=== PATIENT | male | born 1985 | race Caucasian/White ===

== ENCOUNTER 2017-07-23 16:51 | Emergency (ER) | payer MEDICAID ==
[2017-07-23 17:07] VITALS: BP 113/84
--- NOTE | 2017-07-23 18:21 | UC ---
Respiratory Complaint HPI - HPI Summary HPI Summary: Pt c/o cough, X 5 weeks. Pt c/o URI that began 5 weeks ago. Pt has been taking OTC cold, cough and allergy medicine - History of Current Complaint Chief Complaint: UCRespiratory Stated Complaint: CONGESTION,COUGH Time Seen by Provider: 07/23/17 18:14 Hx Obtained From: Patient Timing: Constant Severity Initially: Mild Severity Currently: Mild Character: Cough: Nonproductive Aggravating Factors: Exertion, Deep Breaths, Recumbent Position Alleviating Factors: Nothing Associated Signs And Symptoms: Positive: URI, Nasal Congestion, Hoarseness Related History: Seasonal Allergies - Risk Factors Pulmonary Embolism Risk Factors: Negative Cardiac Risk Factors: Negative Pseudomonas Risk Factors: Negative Tuberculosis Risk Factors: Negative - Allergies/Home Medications Allergies/Adverse Reactions: Allergies Allergy/AdvReac Type Severity Reaction Status Date / Time Dextromethorphan Allergy Intermediate Hives Verified 07/23/17 17:03 Penicillins Allergy Anaphylatic Verified 07/23/17 17:03 Shock PMH/Surg Hx/FS Hx/Imm Hx Previously Healthy: Yes - Surgical History Surgical History: None - Family History Known Family History: Positive: Cardiac Disease - Social History Occupation: Employed Full-time Lives: With Family Alcohol Use: Rare Substance Use Type: None Smoking Status (MU): Heavy Every Day Tobacco Smoker Type: Smokeless Tobacco Amount Used/How Often: 2 cans and 1 puch/week Have You Smoked in the Last Year: No - Immunization History Most Recent Influenza Vaccination: Not the Season Review of Systems Constitutional: Negative Skin: Negative Eyes: Negative ENT: Other - nasal congestion Respiratory: Cough Cardiovascular: Negative Gastrointestinal: Negative Genitourinary: Negative Motor: Negative Neurovascular: Negative Musculoskeletal: Negative Neurological: Negative Psychological: Negative Is Patient Immunocompromised?: No All Other Systems Reviewed And Are Negative: Yes Physical Exam Triage Information Reviewed: Yes Appearance: Well-Appearing Vital Signs: Initial Vital Signs Temp 99.2 F 07/23/17 17:00 Pulse 82 07/23/17 17:00 Resp 16 07/23/17 17:00 BP 113/84 07/23/17 17:00 Pulse Ox 100 07/23/17 17:00 Vital Signs Reviewed: Yes Eye Exam: Normal ENT Exam: Other ENT: Positive: Nasal congestion Dental Exam: Normal Neck exam: Normal Respiratory Exam: Normal Cardiovascular Exam: Normal Musculoskeletal Exam: Normal Neurological Exam: Normal Psychological Exam: Normal Skin Exam: Normal UC Diagnostic Evaluation - Laboratory O2 Sat by Pulse Oximetry: 100 Respiratory Course/Dx - Differential Dx/Diagnosis Differential Diagnosis/HQI/PQRI: Bronchitis Provider Diagnoses: Bronchitis Discharge - Discharge Plan Condition: Stable Disposition: HOME Prescriptions: Azithromycin TAB* [Zithromax TAB (Z-BETY) 250 mg #6 tabs] 2 tab PO .TODAY, THEN 1 DAILY #1 bety Patient Education Materials: Acute Bronchitis (ED) Referrals: [facility] [Outside] - If Needed No Primary Care Phys,NOPCP [Primary Care Provider] -
== END 2017-07-23 18:34 | disposition home or self-care (01) ==
LOC: UCCORT 16:51
DX: J40 Bronchitis, not specified as acute or chronic (principal); F17.210 Nicotine dependence, cigarettes, uncomplicated; Z88.0 Allergy status to penicillin; Z88.8 Allergy status to other drugs, medicaments and biological substances
CPT/HCPCS: 99212; G0463

== ENCOUNTER 2017-11-07 18:14 | Emergency (ER) | payer SELFPAY ==
[2017-11-07 19:41] VITALS: BP 115/77
--- NOTE | 2017-11-07 20:43 | RAD ---
Indication: Direct trauma to the RIGHT forefoot. Pain and bruising at the distal metatarsals and toes. Comparison: No relevant prior exams available on the [facility] for comparison. Technique: AP, lateral, and oblique views of the RIGHT foot. REPORT AND IMPRESSION: Soft tissue swelling over the dorsum of the forefoot. Negative for fracture or malalignment. 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
--- NOTE | 2017-11-07 20:48 | UC ---
Lower Extremity/Ankle HPI - HPI Summary HPI Summary: 32 yo male had a 50 lbs steel plate fell on his right foot occurred at work - History of Current Complaint Chief Complaint: UCLowerExtremity Stated Complaint: RIGHT FOOT PAIN Time Seen by Provider: 11/07/17 20:08 Hx Obtained From: Patient Onset/Duration: Sudden Onset Severity Initially: Moderate Severity Currently: Moderate Pain Intensity: 6 Pain Scale Used: 0-10 Numeric Aggravating Factor(s): Standing, Ambulation Alleviating Factor(s): Rest, Elevation Able to Bear Weight: Yes Related History: Occupational Injury - Allergies/Home Medications Allergies/Adverse Reactions: Allergies Allergy/AdvReac Type Severity Reaction Status Date / Time MS Dextromethorphan Allergy Intermediate Hives Verified 11/07/17 19:41 [Dextromethorphan] MS Penicillins [Penicillins] Allergy Anaphylatic Verified 11/07/17 19:41 Shock Home Medications: Home Medications Ibuprofen TAB* [Motrin TAB* 800 MG] 1,000 mg PO ONCE 11/07/17 [History Confirmed 11/07/17] PMH/Surg Hx/FS Hx/Imm Hx Previously Healthy: Yes - Surgical History Surgical History: None - Family History Known Family History: Positive: Cardiac Disease - Social History Alcohol Use: Rare Substance Use Type: None Smoking Status (MU): Heavy Every Day Tobacco Smoker Type: Smokeless Tobacco Amount Used/How Often: 2 cans and 1 puch/week Have You Smoked in the Last Year: No - Immunization History Most Recent Influenza Vaccination: Not the 2016/2017 Season Review of Systems Constitutional: Negative Skin: Bruising Eyes: Negative ENT: Negative Respiratory: Negative Cardiovascular: Negative Gastrointestinal: Negative Genitourinary: Negative Motor: Negative Neurovascular: Negative Musculoskeletal: Arthralgia, Myalgia Neurological: Negative Psychological: Negative Is Patient Immunocompromised?: No All Other Systems Reviewed And Are Negative: Yes Physical Exam Triage Information Reviewed: Yes Appearance: Well-Appearing, No Pain Distress, Well-Nourished Vital Signs: Initial Vital Signs Temp 98.7 F 11/07/17 19:37 Pulse 63 11/07/17 19:37 Resp 16 11/07/17 19:37 BP 115/77 11/07/17 19:37 Pulse Ox 97 11/07/17 19:37 Eyes: Positive: Conjunctiva Clear ENT: Positive: Hearing grossly normal. Negative: TMs normal, Trismus, Muffled voice, Hoarse voice Neck: Positive: Supple Respiratory: Positive: Lungs clear, Normal breath sounds, No respiratory distress, No accessory muscle use Cardiovascular: Positive: RRR, No Murmur Musculoskeletal: Positive: Other: - see image Neurological: Positive: Alert Psychological Exam: Normal Skin Exam: Other - see image Diagnostics - Radiology No standard instances Xray Interpretation: No Acute Changes - some STS/no fx Radiology Interpretation Completed By: Radiologist Lower Extremity Course/Dx - Course Course Of Treatment: refuses CAM boot or work excuse - Differential Dx/Diagnosis Provider Diagnoses: right foot contusion Discharge - Discharge Plan Condition: Stable Disposition: HOME Patient Education Materials: Foot Contusion (ED) Referrals: No Primary Care Phys,NOPCP [Primary Care Provider] - Additional Instructions: tylenol or advil for pain Images Feet (Multiple View): 1 - swollen/ecchymotic
== END 2017-11-07 20:56 | disposition home or self-care (01) ==
LOC: UCCORT 18:14
DX: S90.31XA Contusion of right foot, initial encounter (principal); W20.8XXA Other cause of strike by thrown, projected or falling object, initial encounter; Y93.9 Activity, unspecified; Y92.9 Unspecified place or not applicable; Y99.0 Civilian activity done for income or pay; F17.220 Nicotine dependence, chewing tobacco, uncomplicated
CPT/HCPCS: 99211; G0463

== ENCOUNTER 2018-02-11 08:37 | Emergency (ER) | payer MEDICAID ==
[2018-02-11 09:00] VITALS: BP 114/73
--- NOTE | 2018-02-11 09:17 | UC ---
Dental HPI - HPI Summary HPI Summary: pain right upper wisdom tooth x 2 days worse today , + swelling , abscess of the tooth no fever, no chills - History of Current Complaint Chief Complaint: UCDentalProblem Stated Complaint: ORAL/DENTAL COMPLAINT Time Seen by Provider: 02/11/18 09:04 Hx Obtained From: Patient Onset/Duration: Gradual Onset, Lasting Days - 2, Still Present, Worse Since - today Severity: Severe Pain Intensity: 7 Aggravating Factor(s): Cold, Chewing Alleviating Factor(s): Nothing Dental: 1 - pain/ swelling / abscess - Allergies/Home Medications Allergies/Adverse Reactions: Allergies Allergy/AdvReac Type Severity Reaction Status Date / Time Penicillins Allergy Severe Anaphylatic Verified 02/11/18 09:01 Shock PMH/Surg Hx/FS Hx/Imm Hx Previously Healthy: Yes - Surgical History Surgical History: None - Family History Known Family History: Positive: Cardiac Disease - Social History Alcohol Use: Rare Substance Use Type: None Smoking Status (MU): Heavy Every Day Tobacco Smoker Type: Smokeless Tobacco Amount Used/How Often: 2 cans and 1 puch/week Have You Smoked in the Last Year: No - Immunization History Most Recent Influenza Vaccination: Not the Season Review of Systems Constitutional: Negative Skin: Negative Eyes: Negative ENT: Dental Pain Respiratory: Negative Cardiovascular: Negative Is Patient Immunocompromised?: No All Other Systems Reviewed And Are Negative: Yes Physical Exam Triage Information Reviewed: Yes Appearance: Well-Appearing, Well-Nourished, Pain Distress Vital Signs: Initial Vital Signs Temp 98.6 F 02/11/18 08:56 Pulse 70 02/11/18 08:56 Resp 20 02/11/18 08:56 BP 114/73 02/11/18 08:56 Pulse Ox 100 02/11/18 08:56 Vital Signs Reviewed: Yes Eyes: Positive: Conjunctiva Clear ENT: Positive: Normal ENT inspection, Hearing grossly normal, Pharynx normal, TMs normal Dental: Positive: Gross Decay/Caries @ - #1, Abscess @ - #1 Neck: Positive: Supple, Nontender, No Lymphadenopathy Respiratory: Positive: Chest non-tender, Lungs clear, Normal breath sounds Cardiovascular: Positive: RRR, No Murmur, Pulses Normal Dental Complaint Course/Dx - Differential Dx/Diagnosis Provider Diagnoses: dental abscess Discharge - Sign-Out/Discharge Documenting (check all that apply): Discharge/Admit/Transfer - Discharge Plan Condition: Stable Disposition: HOME Prescriptions: Acetaminophen with Codeine [Acetaminophen-Cod #3 Tablet] 1 each PO Q6H PRN #15 tablet MDD 4 tabs PRN Reason: Pain Clindamycin Cap(NF) [Clindamycin Cap 300 mg Cap(NF)] 300 mg PO Q6H #40 cap Patient Education Materials: Dental Abscess (ED) Referrals: YOSHI Bravo [Primary Care Provider] - If Needed Additional Instructions: follow up with your dentist nasreen - Billing Disposition and Condition Condition: STABLE Disposition: HOME
== END 2018-02-11 09:15 | disposition home or self-care (01) ==
LOC: UCCORT 08:37
DX: K04.7 Periapical abscess without sinus (principal); Z88.0 Allergy status to penicillin
CPT/HCPCS: 99212; G0463

== ENCOUNTER 2019-02-21 12:55 | Emergency (ER) | payer BC, MEDICAID ==
[2019-02-21 14:34] VITALS: BP 115/73
--- NOTE | 2019-02-21 14:40 | UC ---
Dental HPI - HPI Summary HPI Summary: PT IS C/O A 10 DAY HX OF INCREASING PAIN AND SWELLING TO HIS L LOWER JAW BY SOME BAD TEETH. - History of Current Complaint Chief Complaint: UCDentalProblem Stated Complaint: ORAL CONCERN Time Seen by Provider: 02/21/19 14:13 Hx Obtained From: Patient Onset/Duration: Gradual Onset Pain Intensity: 6 Aggravating Factor(s): Chewing - Allergies/Home Medications Allergies/Adverse Reactions: Allergies Allergy/AdvReac Type Severity Reaction Status Date / Time Penicillins Allergy Severe Anaphylatic Verified 02/21/19 14:34 Shock PMH/Surg Hx/FS Hx/Imm Hx Previously Healthy: Yes - Surgical History Surgical History: None - Family History Known Family History: Positive: Cardiac Disease - Social History Alcohol Use: Rare Substance Use Type: None Smoking Status (MU): Current Every Day Smoker Type: Smokeless Tobacco Amount Used/How Often: 1 cans and 1 puch/week Have You Smoked in the Last Year: No - Immunization History Most Recent Influenza Vaccination: Not the 2016/2017 Season Vaccination Up to Date: Yes Review of Systems All Other Systems Reviewed And Are Negative: No Constitutional: Negative: Fever Skin: Negative: Rash ENT: Positive: Dental Pain. Negative: Sore Throat, Ear Ache, Nasal Discharge Neurological: Negative: Headache Physical Exam Triage Information Reviewed: Yes Appearance: Well-Appearing Vital Signs: Initial Vital Signs Temp 98.7 F 02/21/19 14:31 Pulse 80 02/21/19 14:31 Resp 16 02/21/19 14:31 BP 115/73 02/21/19 14:31 Pulse Ox 99 02/21/19 14:31 Vital Signs Reviewed: Yes Eyes: Positive: Conjunctiva Clear ENT: Positive: Pharynx normal, TMs normal. Negative: Nasal congestion, Nasal drainage Dental: Positive: Percussion Tenderness @ - L lower 3 posterior teeth, Gross Decay/Caries @, Abscess @ - L lower lateral gum Neck: Positive: Supple, Nontender, No Lymphadenopathy Respiratory: Positive: No respiratory distress Musculoskeletal: Positive: ROM Intact Neurological: Positive: Alert Psychological: Positive: Age Appropriate Behavior Skin Exam: Normal Skin: Negative: Rashes Dental Complaint Course/Dx - Differential Dx/Diagnosis Differential Diagnosis/Dx: Other - no concern for Eder's angina. exam c/w abscess but not fluctuant nough to drain. Provider Diagnosis: Dental abscess Discharge - Sign-Out/Discharge Documenting (check all that apply): Patient Departure All imaging exams completed and their final reports reviewed: No Studies - Discharge Plan Condition: Stable Disposition: HOME Prescriptions: Clindamycin Cap(NF) [Clindamycin Cap 300 mg Cap(NF)] 300 mg PO Q6H 10 Days #40 cap Naproxen [Naprosyn 500 mg tab] 500 mg PO BID 5 Days #10 tablet Patient Education Materials: Dental Abscess (ED) Referrals: Flor Mendez MD [Primary Care Provider] - Additional Instructions: FOLLOW UP DENTAL SOON POSSIBLE-SEE LIST PROVIDED - Billing Disposition and Condition Condition: STABLE Disposition: Home - Attestation Statements Provider Attestation: Per institutional requirements, I have reviewed the chart, however, I was not consulted specifically or made aware of this patient by the midlevel provider. I did not personally evaluate, interact with , or disposition this patient.
== END 2019-02-21 14:49 | disposition home or self-care (01) ==
LOC: UCCORT 12:55
DX: K04.7 Periapical abscess without sinus (principal); K02.9 Dental caries, unspecified; F17.290 Nicotine dependence, other tobacco product, uncomplicated; Z88.0 Allergy status to penicillin
CPT/HCPCS: 99212; G0463